=== PATIENT | female | born 1960 | race African-American/Black ===

== ENCOUNTER 2017-06-09 13:25 | Inpatient (IN) ==
[2017-06-09 16:31] LABS: BASO% 1.5 % (0.0-0.8); EOS# 0.33 X1000 (0.0-0.7); EOS% 2.9 % (0.0-10.0); HEMOGLOBIN 12.1 g/dL (12.0-16.0); IMM GRAN# 0.11 X1000 (0.0-0.04); LYMPH# 1.29 X1000 (1.2-3.4); LYMPH% 11.3 % (20.5-51.1); MANUAL DIFF NEEDED? NO; MCH 25.4 PG (27-31); MCHC 32.7 g/dL (33-37); MCV 77.7 FL (81-99); MONO# 0.92 X1000 (0.11-0.59); MONO% 8.1 % (1.7-9.3); MPV 11.8 FL (7.4-10.4); NEUT% 75.2 % (42.2-75.2); PLT 237 X1000 (130-400); RBC 4.76 XMIL (4.2-5.4)
--- NOTE | 2017-06-09 16:37 | Diag Imaging Result Doc PS360 ---
EXAM: CHEST-2 VIEWS HISTORY: shortness of breath TECHNIQUE: COMPARISON: 06/06/2017 FINDINGS: The lungs are well expanded. The heart is not enlarged. The vessels are not distended. There are no infiltrates. No pleural effusions. IMPRESSION: No acute abnormality. Electronically signed by Boom Turner 06/09/2017 4:35 PM
--- NOTE | 2017-06-09 16:54 | EKG Report ---
Test Performed on : 06/09/2017 4:50:01 PM Test Reason : FATIGUE CHF Blood Pressure : / mmHG Vent. Rate : 067 BPM Atrial Rate : 067 BPM P-R Int : 148 ms QRS Dur : 078 ms QT Int : 428 ms P-R-T Axes : 019 046 061 degrees QTc Int : 452 ms Normal sinus rhythm. Normal ECG No previous ECGs available Unconfirmed Result
--- NOTE | 2017-06-09 16:59 | PROVIDER DOCUMENTATION ---
HPI-General Adult - General Chief Complaint: Return/Recheck Stated Complaint: RETURN/RECHECK Time Seen by Provider: 06/09/17 15:45 Source: patient Allergies/Adverse Reactions: Patient Allergies Allergy/AdvReac Type Severity Reaction Status Date / Time No Known Allergies Allergy Verified 06/06/17 20:50 Home Medications: Home Medication List Medication Instructions Recorded Confirmed Last Taken Type Clonidine [Catapres] 0.1 mg PO TID 07/04/13 06/06/17 06/02/17 History 0.1 MG Diltiazem HCl [Cardizem] 240 mg PO DAILY 07/04/13 06/06/17 06/02/17 History 120 MG Hydralazine [Apresoline] 50 mg PO TID 07/04/13 06/03/17 06/02/17 History 50 MG Hydrochlorothiazide 12.5 mg PO QAM 07/04/13 06/06/17 06/02/17 History 12.5 MG Hydroxyzine [Atarax] 50 mg PO TID 07/04/13 06/06/17 06/02/17 History 25 MG Isosorbide Mononitrate E.r. [Imdur] 30 mg PO BID 07/04/13 06/06/17 06/02/17 History 30 MG Allopurinol 300 mg PO DAILY 06/06/17 06/06/17 Unknown History Bisoprolol Fumarate [Bisoprolol 20 mg PO DAILY 06/06/17 06/06/17 Unknown History Fumarate] Magnesium Oxide [Mag-Ox] 400 mg PO BID 06/06/17 06/06/17 Unknown History Potassium Chloride [Klor-Con M10] 20 meq PO DAILY 06/06/17 06/06/17 Unknown History Spironolactone [Spironolactone] 25 mg PO DAILY 06/06/17 06/06/17 Unknown History - History of Present Illness -Gen Adult Nature of Presenting Problems: 56 y/o F with history of CHF, HTN, HLD, gout presents with lightheadedness, dry cough and fatigue x 1 week. Patient was seen in ED last week and diagnosed with URI and bronchitis. At that time labs showed hyponatremia and NASREEN. She was discharged home to follow up with PCP, Dr. Eastman. She saw Dr. Eastman today. Patient's daughter is present at the bedside and states he recommended she return for admission. Review of Systems - Adult - REVIEW OF SYSTEMS - ADULT Constitutional: reports: stephan. denies: chills, fever Eyes: reports: no symptoms reported. denies: decreased vision, blurred vision Ears, Nose, Mouth & Throat: reports: no symptoms reported. denies: ear pain, hearing loss Cardiovascular: reports: other (lightheadeness/presyncope). denies: chest pain , irregular heart rate, syncope Respiratory: reports: cough. denies: shortness of breath, wheezing Gastrointestinal: reports: no symptoms reported. denies: abdominal pain, nausea , vomiting Genitourinary: reports: no symptoms reported. denies: dysuria, frequency, hematuria Musculoskeletal: reports: no symptoms reported. denies: joint swelling, muscle aches, muscle weakness Integumentary: reports: no symptoms reported. denies: itching, rash Neurological: reports: no symptoms reported. denies: dizziness/vertigo, headache/migraines, numbness Psychiatric: reports: no symptoms reported Endocrine: reports: no symptoms reported Hematologic/Lymphatic: reports: no symptoms reported Allergic/Immunologic: reports: no symptoms reported All Other Systems: Reviewed and Negative Past History - Adult - PAST MEDICAL HISTORY-ADULT Review of Records: reports: Old Records Reviewed, Nursing Assessment Review, Medications Reviewed, Social history reviewed & non-contributory. Major Childhood Illnesses: reports: denies history Cardiovascular: reports: HTN Respiratory: reports: asthma Gastrointestinal: reports: denies history Obstetrical/Gynecological: reports: denies history Genitourinary: reports: denies history Musculoskeletal: reports: denies history Neurological: reports: denies history Endocrine/Immune: reports: denies history Other Conditions: reports: denies history - PRIOR SURGERIES/PROCEDURES Surgical/Procedure History: reports: none - IMMUNIZATION STATUS Childhood Immunizations: See Nurse Assessment Flu Vaccine: See Nurse Assessment Physical Exam-General - PHYSICAL EXAM-ADULT Initial Vital Signs Reviewed: Yes - CONSTITUTIONAL General Appearance: appears well, alert, no apparent distress - EYES Eyes: PERRL/EOMI, pink conjunctivae - HEAD, EARS, NOSE, MOUTH & THROAT HENMT: normocephalic/atraumatic, other (dry, cracked lips) - NECK Neck: normal inspection - RESPIRATORY Respiratory: lungs clear, normal breath sounds, no pleuratic chest pain, no respiratory distress, no accessory muscle use - CARDIOVASCULAR Cardiovascular: normal peripheral pulses, regular rate, rhythm, no edema - GASTROINTESTINAL (ABDOMEN) Abdominal Exam: normal bowel sounds, non tender, soft - LYMPHATIC Lymphatic: no adenopathy - MUSCULOSKELETAL Back Exam: no CVA tenderness, no vertebral tenderness Extremity: non-tender, normal gait, normal inspection, no pedal edema, no calf tenderness Peripheral Pulses: radial (R): 2+, radial (L): 2+ - SKIN Integumentary: normal color, normal turgor, warm/dry - NEUROLOGIC Neurologic: vp research II-XII nml as tested, grossly normal, no motor/sensory deficits , abnormal cerebellar tests. negative: aphasia, facial droop, focal weakness, motor weakness, sensory deficit - PSYCHIATRIC Psych/Mental Status: normal mood/affect, normal thought content, normal thought process, oriented x 3 Progress - PLAN OF CARE/RESULTS Progress/Plan/Lab Results: Vital Signs - 8 hr 06/09/17 13:44 06/09/17 16:21 Temperature 98 F Pulse Rate 78 Pulse Rate [Sitting] 69 Pulse Rate [Standing] 91 H Pulse Rate [Supine] 69 Respiratory Rate 18 Blood Pressure 123/50 Blood Pressure [Sitting] 103/48 Blood Pressure [Standing] 90/37 Blood Pressure [Supine] 86/45 O2 Sat by Pulse Oximetry 100 Laboratory Results - last 24 hr 06/09/17 16:10 WBC 11.40 H RBC 4.76 Hgb 12.1 Hct 37.0 MCV 77.7 L MCH 25.4 L MCHC 32.7 L RDW Std Deviation 14.9 H Plt Count 237 MPV 11.8 H Immature Gran % (Auto) 1.0 H Neut % (Auto) 75.2 Lymph % (Auto) 11.3 L [place] % (Auto) 8.1 Eos % (Auto) 2.9 Baso % (Auto) 1.5 H Immature Gran # (Auto) 0.11 H Neut # (Auto) 8.58 H Lymph # (Auto) 1.29 [place] # (Auto) 0.92 H Eos # (Auto) 0.33 Baso # (Auto) 0.17 Orders Category Date Time Status Orthostatic Vital Signs NOW Care 06/09/17 15:49 Active CHEST-2 VIEWS [RAD] Stat Exams 06/09/17 15:51 Completed CBC WITH ELECTRONIC DIFF [HEME] Stat Lab 06/09/17 16:10 Completed COMPREHENSIVE METABOLIC PANEL [CHEM] Stat Lab 06/09/17 16:10 Received PRO B-NATRIURETIC PEPTIDE Stat Lab 06/09/17 16:10 Received TROPONIN T Stat Lab 06/09/17 16:[address] W/POSS RFLX CULT [URINALYSIS] Stat Lab 06/09/17 16:25 Received EKG [EKG] Stat Ther 06/09/17 15:49 Ordered Result Diagrams: 06/09/17 16:10 06/09/17 16:10 - XRAY 1 XRAY Study: Chest Impression: See EMR Report Departure - Departure Date of Disposition Decision: 06/09/17 Time of Disposition Decision: 18:15 DIAGNOSIS: Hyponatremia, NASREEN (acute kidney injury), Dehydration Disposition: ADMITTED INPATIENT 09 Certified Medical Emergency: Emergent Condition: Stable Referrals and Follow-Ups: Papito Eastman MD [Primary Care Provider] - - Critical Care Note This patient required my direct & personal management of CC.: No Attestation - Physician/ YFN Attestation Patient care was provided by Advanced Practice Provider:: Yes Advanced Practice Provider:: Brooklyn Arthur Advanced Practice Provider documentation review:: The Mid-level provider documentation, treatment plan and medical decision making was reviewed by the physician who agrees with all treatment and medical decision making by the MLP.
[2017-06-09 17:23] LABS: ALBUMIN 3.1 g/dL (3.5-5.0); CALCIUM 8.8 mg/dL (8.8-10.2); POTASSIUM 4.3 mmol/L (3.5-5.1); TOTAL BILIRUBIN 0.5 mg/dL (0.20-1.00); TOTAL PROTEIN 6.2 g/dL (6.3-8.3)
[2017-06-09 17:24] LABS: BILIRUBIN URINE NEGATIVE (NEGATIVE); BLOOD URINE NEGATIVE (NEGATIVE); CLARITY CLEAR (CLEAR); COLOR YELLOW; GLUCOSE URINE NEGATIVE (NEGATIVE); LEUKOCYTES URINE 1+ (NEGATIVE); NITRITE URINE NEGATIVE (NEGATIVE); PROTEIN URINE TRACE mg/dL (NEGATIVE); SP GRAVITY URINE 1.025; UROBILINOGEN URINE NORMAL
[2017-06-09 18:00] LABS: URINE SOURCE CLEAN CATCH
[2017-06-09 18:02] LABS: URINE CULTURE PL NEEDED? YES; URINE EPITHELIAL CELLS >10 /HPF (<10); URINE RBC <10 /HPF (<10); URINE WBC <10 /HPF (<10)
[2017-06-09] MEDS ORDERED: NS 1,000 ML IV PRN (18:10)
[2017-06-09] MEDS ORDERED: TYLENOL PO PRN (18:46)
[2017-06-09] MEDS ORDERED: ZOFRAN IV PRN (18:46)
[2017-06-09] MEDS: NS 1,000 ML IV SCH (21:08)
[2017-06-10] MEDS: NS 1,000 ML IV SCH ×4 (04:17→18:25)
[2017-06-10 06:57] LABS: HEMATOCRIT 35.5 % (37.0-47.0); MCH 25.7 PG (27-31); MCHC 33.8 g/dL (33-37); RBC 4.67 XMIL (4.2-5.4)
[2017-06-10 07:03] LABS: CALCIUM 8.4 mg/dL (8.8-10.2); MAGNESIUM 2.7 mg/dL (1.5-2.7); TOTAL BILIRUBIN 0.5 mg/dL (0.20-1.00)
--- NOTE | 2017-06-10 11:12 | PROGRESS NOTE ---
DATE: 06/10/2017 SUBJECTIVE: The patient notes that she is feeling a little bit better this morning. Denies any chest pain or palpitations. Denies any fevers or chills. Denies any neurologic symptoms. Denies any confusion or disorientation. OBJECTIVE: Vital Signs: Temperature 97, pulse 70, respiratory rate 18, blood pressure 119/49, saturation 100% on room air. General: Patient is awake, alert. She is currently in no respiratory distress. She is pleasant to talk with. Sitting in the bed, talking with her daughter. HEENT: Normocephalic, atraumatic. NIRMAL. Neck: Supple. Cardiovascular: Regular rate. Chest: Relatively clear. Abdomen: Soft. Extremities: Moves all extremities. Neurologic: No focal neurological changes. Skin: Warm and dry. No rashes. LABORATORIES: CBC normal. Sodium 117, unchanged from last night. Carbon dioxide 17. BUN 81. Creatinine 2.7. AST, ALT, alkaline phosphatase essentially unchanged. ASSESSMENT: 1. Hyponatremia. Unfortunately, the laboratory has not resulted urine sodium. Certainly, this appears to be prerenal with volume depletion as the cause. Although she has made no change in her sodium overnight, we will continue IV fluids. We will continue to follow. 2. Acute delirium, resolved. 3. Nausea, resolved 4. Acute hepatitis of unknown etiology. We will check hepatitis profile and possibly even an ultrasound of her abdomen. We will allow her to have a regular diet today. We will continue to follow. We will recheck her sodium this afternoon. cc: Lupillo Tierney MD
[2017-06-10 16:37] LABS: CALCIUM 8.2 mg/dL (8.8-10.2); POTASSIUM 3.7 mmol/L (3.5-5.1)
--- NOTE | 2017-06-10 18:05 | HISTORY AND PHYSICAL ---
CHIEF COMPLAINT: Followup for upper respiratory infection and bronchitis. HISTORY OF PRESENT ILLNESS: This is a 56-year-old female who presented to the emergency room as followup from a visit last week to the emergency room. At that time she was diagnosed with an upper respiratory infection and bronchitis. At that time labs showed hyponatremia and acute kidney injury and she was instructed to follow up with Dr. Eastman. She did follow up at his office prior to coming to the emergency room and it was noted that she had a sodium of 121 as well as a creatinine of 2.6. Therefore, Dr. Eastman recommended she come to the emergency room. Labs today revealed a WBC of 11.4, sodium of 117 and creatinine of 2.9. She was given IV hydration as well as Zofran for nausea and admitted for further evaluation and treatment. PAST MEDICAL HISTORY: Hypertension. PAST SURGICAL HISTORY: Denies. SOCIAL HISTORY: She does smoke about half-pack a day. She has beer on the weekends. She denies any illicit drug use. ALLERGIES: No known drug allergies. HOME MEDICATIONS: Apresoline, Cardizem, clonidine, allopurinol, spironolactone, Klor-Con, magnesium oxide, Imdur, Atarax and hydrochlorothiazide. REVIEW OF SYSTEMS: A 14 point review of systems is discussed with the patient with pertinent positives being generalized weakness, fatigue, lightheadedness. She denied palpitations, syncope, shortness of breath, cough, fever, chills, nausea, vomiting, diarrhea, constipation, black or bloody vomitus, black or bloody stools, hematuria, dysuria, frequency or urgency. PHYSICAL EXAMINATION: GENERAL: This is a 56-year-old female who is lying in bed, in no distress. VITAL SIGNS: Blood pressure is 113/48 with a heart rate of 78, respirations are 18, temperature is 97.9 degrees, with O2 saturations of 99% on room air. HEENT: Head is normocephalic, atraumatic. Pupils equal, round, reactive to light. EOMs are intact. Sclerae anicteric. Mucous membranes are dry. NECK: Supple with trachea midline. CARDIOVASCULAR: Regular rate and rhythm. S1 and S2 appreciated. PULMONARY: Breath sounds are clear with no increased work of breathing noted. GASTROINTESTINAL: Abdomen is soft, nontender, nondistended with bowel sounds in all 4 quadrants. BACK: No CVAT. No spine tenderness. MUSCULOSKELETAL: Good range of motion of joints. NEUROLOGIC: She is alert and oriented x3. Cranial nerves 2-12 are grossly intact. DIAGNOSTICS: WBC 11.4 with a hemoglobin 12.1, hematocrit 37 and platelets 237,000. Sodium is 117, potassium 4.3, BUN 80, creatinine 2.9 with a glucose of 118. AST 57, ALT 97, with alkaline phosphatase 235. ASSESSMENT AND PLAN: This is a 56-year-old female who is lying in the bed, in no distress. 1. Hyponatremia. 2. This appears to be prerenal with volume depletion. The patient has continued to take her hydrochlorothiazide as well as her spironolactone. 3. Acute delirium resolved. 4. Nausea resolved. 5. Acute hepatitis of unknown etiology. We will check a hepatitis profile. She will remain NPO. We will identify her home medications and continue as appropriate. Further treatments pending hospital course. Dictated by DAVINA Coppola for Lupillo Tierney MD cc: DAVINA Coppola MD
[2017-06-11] MEDS: NS 1,000 ML IV SCH ×5 (02:00→23:45)
[2017-06-11 06:25] LABS: HEMATOCRIT 33.7 % (37.0-47.0); HEMOGLOBIN 11.3 g/dL (12.0-16.0); MCH 25.7 PG (27-31); MCHC 33.5 g/dL (33-37); MCV 76.8 FL (81-99); MPV 11.4 FL (7.4-10.4); RBC 4.39 XMIL (4.2-5.4)
[2017-06-11 06:51] LABS: ALBUMIN 2.8 g/dL (3.5-5.0); CALCIUM 8.1 mg/dL (8.8-10.2); MAGNESIUM 2.6 mg/dL (1.5-2.7); POTASSIUM 3.5 mmol/L (3.5-5.1); TOTAL BILIRUBIN 0.4 mg/dL (0.20-1.00); TOTAL PROTEIN 5.5 g/dL (6.3-8.3)
--- NOTE | 2017-06-11 09:00 | PROGRESS NOTE ---
DATE: 06/11/2017 SUBJECTIVE: Patient notes that she is feeling tremendously better this morning. Denies any chest pain, palpitations. Denies any fevers or chills. States that overall she is feeling better than when she got to the hospital. OBJECTIVE: Vital signs: Temperature 99.3, pulse 78, respiratory 16, BP 101/52, saturation 100% on room air. General: Patient is awake, alert. She is in no respiratory distress. She is pleasant to talk with. Neck: Supple. CV: Regular rate. Chest: Relatively clear. Abdomen: Soft. Extremities: Moves all extremities. Neurologic: No focal neurological changes. Skin: Warm and dry. No rashes. ASSESSMENT: 1. Acute renal failure. Serum creatinine was 2.9 on admit. It has continued to improve. Currently back down to 1.6. 2. Volume depletion secondary to poor oral intake as well of diuretics, has improved. Will continue IV fluids. 3. Hyponatremia. Sodium continues to improve. Currently is at 123 which is above her 117 on admit. 4. Acute hepatitis. AST, ALT, and alkaline phosphatase all continue to improve. 5. Moderate protein calorie malnutrition. 6. Acute fatigued. 7. Facial swelling. PLAN: Uncertain etiology of her facial swelling. Patient notes that it has gotten better since she has been in the hospital. Since she has been here she has not been taking her home medications. We will continue to hold her spironolactone and her potassium. We will restart her magnesium, Imdur, and hydralazine. Her blood pressures actually have been very good in the hospital without her home blood pressure medications, so we will hold those for the moment and will follow. cc: Lupillo Tierney MD
[2017-06-11] MEDS: IMDUR PO SCH ×2 (09:29→20:08)
[2017-06-11] MEDS: SODIUM CHLORIDE PO SCH ×2 (09:29→20:08)
[2017-06-11] MEDS: MAG-OX PO SCH ×2 (09:29→20:08)
[2017-06-12] MEDS: NS 1,000 ML IV SCH ×5 (01:42→17:36)
[2017-06-12] MEDS: MAG-OX PO SCH ×2 (08:18→20:48)
[2017-06-12] MEDS: IMDUR PO SCH ×2 (08:18→20:48)
[2017-06-12 08:46] LABS: HEMATOCRIT 30.5 % (37.0-47.0); MCH 25.5 PG (27-31); MCHC 32.8 g/dL (33-37); MCV 77.8 FL (81-99); MPV 11.3 FL (7.4-10.4); RBC 3.92 XMIL (4.2-5.4)
[2017-06-12] MEDS: SODIUM CHLORIDE PO SCH ×2 (09:00→20:48)
[2017-06-12 09:15] LABS: ALBUMIN 2.8 g/dL (3.5-5.0); POTASSIUM 3.7 mmol/L (3.5-5.1); TOTAL BILIRUBIN 0.3 mg/dL (0.20-1.00); TOTAL PROTEIN 4.9 g/dL (6.3-8.3)
[2017-06-12 09:46] LABS: HEPATITIS PROFILE ACUTE SEE COMMENTS
--- NOTE | 2017-06-12 11:59 | PROGRESS NOTE ---
DATE: 06/12/2017 SUBJECTIVE: The patient states that she is feeling much better today. She denies any chest pain or palpitations. Denies fevers or chills. Overall, she states she is feeling better and she has more strength. OBJECTIVE: Vital Signs: Blood pressure is 109/55 with a heart rate of 90, respirations 16, and temperature 98.3 degrees oral, with room air saturations of 99% to 100%. General: This is a 56- year-old female who is sitting up in the bed, in no distress. Cardiovascular: Regular rate and rhythm. S1 and S2 appreciated. Pulmonary: Breath sounds are clear, with no increased work of breathing noted. Gastrointestinal: Abdomen is soft, nontender, and nondistended, with bowel sounds in all 4 quadrants. Extremities: No clubbing, cyanosis, or edema. Calves are nontender. Pulses are palpable x4. Neurologic: She is alert and oriented x4. ASSESSMENT: 1. Acute renal failure. Her serum creatinine is down to 1.2. 2. Volume depletion secondary to poor oral intake as well as the use of diuretics. This has improved. We will continue with her IV fluids. 3. Hyponatremia. Sodium has corrected even more. She is at 129. We are awaiting a urine sodium. 4. Acute hepatitis is improving. We will continue to trend laboratories. 5. Moderate protein calorie malnutrition. 6. Fatigue. 7. Facial swelling. PLAN: We will continue to hold her spironolactone and her potassium. We will continue with her current regimen. Of note, blood pressures have been in the 101 to 129 over 40 to 50 range off of antihypertensive medications. Dictated by DAVINA Coppola for Lupillo Tierney MD cc: DAVINA Coppola MD
--- NOTE | 2017-06-12 16:42 | Diag Imaging Result Doc PS360 ---
EXAM: US RENAL 2 (RETROPER) COMPLETE - 06/12/2017 HISTORY: NASREEN, hyponatremia TECHNIQUE: Bilateral renal ultrasound COMPARISON: None. FINDINGS: The right kidney measures 10.8 x 5.7 x 6.1 cm in size. The left kidney measures 11.2 x 4.5 x 5.3 cm in size. There is no renal mass or hydronephrosis. There is no renal stone identified. Images of the urinary bladder demonstrate no lesion. There is a small amount of fluid in the endometrial canal uterus noted on the images obtained during evaluation of the urinary bladder. IMPRESSION: No visible renal abnormality. No hydronephrosis. Small amount of fluid noted in the endometrial canal the uterus. Correlation with clinical evaluation is recommended. Electronically signed by Philip Liang 06/12/2017 4:40 PM
[2017-06-13] MEDS: NS 1,000 ML IV SCH ×2 (02:08→05:54)
[2017-06-13 05:52] VITALS: BP 97/52
[2017-06-13 06:25] LABS: HEMATOCRIT 30.4 % (37.0-47.0); HEMOGLOBIN 9.9 g/dL (12.0-16.0); MCH 25.5 PG (27-31); MCHC 32.6 g/dL (33-37); MCV 78.4 FL (81-99); RBC 3.88 XMIL (4.2-5.4)
[2017-06-13 06:41] LABS: ALBUMIN 2.9 g/dL (3.5-5.0); CALCIUM 8.2 mg/dL (8.8-10.2); POTASSIUM 3.8 mmol/L (3.5-5.1); TOTAL BILIRUBIN 0.3 mg/dL (0.20-1.00)
[2017-06-13] MEDS: SODIUM CHLORIDE PO SCH (08:18)
[2017-06-13] MEDS: MAG-OX PO SCH (08:19)
[2017-06-13] MEDS: IMDUR PO SCH (08:19)
[2017-06-13] MEDS ORDERED: APRESOLINE PO SCH ×2 (09:00)
--- NOTE | 2017-06-14 06:39 | DISCHARGE SUMMARY ---
ADMISSION DATE: 06/09/2017 DISCHARGE DATE: 06/13/2017 DIAGNOSES: 1. Hyponatremia, resolved. 2. Volume depletion, prerenal. This has resolved. 3. Acute delirium, resolved. 4. Acute hepatitis of unknown etiology, resolving. 5. Moderate protein calorie malnutrition. 6. Fatigue. 7. Facial swelling, resolved. DIAGNOSTICS: 1. On 06/09/2017, chest x-ray revealed no acute abnormality. Lungs are well expanded. Heart is not enlarged. Vessels are not distended. No infiltrates. 2. On 06/12/2017, renal ultrasound. No visible renal abnormality. No hydronephrosis. 3. Microbiology. Urine culture revealed mixed molly. HOSPITAL COURSE: Ms. Reinoso presented to the emergency room as a followup visit from last week, at which time she was diagnosed with an upper respiratory infection as well as bronchitis. Labs did show hyponatremia and acute kidney injury at that time, and she was discharged from the emergency room and told to follow up with Dr. Eastman, which she did. She was noted to have a sodium of 121 and a creatinine of 2.6. Therefore, Dr. Eastman sent her to the emergency room for further evaluation. On arrival, her creatinine was 2.9, with a sodium of 117. She was admitted. She was given IV hydration along with sodium chloride tablets twice a day. Sodium did trend up to 130 today with chlorides being 85 on admission and 103 today. She was noted to have a creatinine of 2.9. It looks like her baseline has been 1.1 to 1.2. After IV hydration and holding any renal toxic medications, her creatinine is 1 today. We did trend her LFTs. They have steadily been dropping. She denied any abdominal pain. She did have some facial swelling on admission. This has improved daily. Of note, her home medications were held and upon holding her home medications, her facial swelling began to resolve. We have restarted her blood pressure medicines. She did not receive allopurinol, hydroxyzine or her Zebeta. Thankfully, she has improved and she is ready to be discharged. DISCHARGE PHYSICAL EXAMINATION: General: This is a 56-year-old female who is sitting in the room in no distress. Vital Signs: Blood pressure is 97/52 with a heart rate of 96, respirations are 18, temperature is 98.4 degrees oral with a room air saturation of 100%. Cardiovascular: Regular rate and rhythm. S1 and S2 appreciated. Pulmonary: Breath sounds are clear with no increased work of breathing noted. Gastrointestinal: Abdomen is soft, nontender, nondistended. Bowel sounds in all 4 quadrants. Back: No CVAT. No spine tenderness. Musculoskeletal: Good range of motion of joints. Extremities: No clubbing, cyanosis, or edema. Calves are nontender. Pulses are palpable x4. Neurologic: She is alert and oriented x4. DISCHARGE MEDICATIONS: Hydralazine 25 mg b.i.d., Imdur 30 mg b.i.d., magnesium oxide 400 mg b.i.d. She is to continue to hold her hydroxyzine, allopurinol and bisoprolol until she discusses continuing with Dr. Eastman, her primary care physician. FOLLOWUP: She is to follow Dr. Papito Eastman, her primary care physician in the next 1-2 weeks, sooner if needed. CONDITION: She is being discharged home in stable condition with family members. TIME SPENT: This is a greater than 30 minute discharge. Dictated by DAVINA Coppola for Lupillo Tierney MD cc: DAVINA Coppola MD
[2017-06-16 11:01] LABS: HEPATITIS PROFILE ACUTE SEE COMMENTS
== END 2017-06-13 09:27 | disposition home or self-care (01) ==
LOC: P.ED 13:25 → P.MEDSURG 19:46
PROVIDERS: ATTEND Family Medicine